=== PATIENT | male | born 1985 | race Caucasian/White ===

== ENCOUNTER 2021-09-20 23:16 | Emergency (ER) | payer OTHER, SELFPAY ==
[2021-09-20 23:20] VITALS: BP 144/67; PULSE 69; RESP 18; TEMP 37.2; O2SAT 97; BMI 27.9
--- NOTE | 2021-09-20 23:27 | DI.RAD.S_ITS ---
PROCEDURE: XR ANKLE LT MIN 3V INDICATIONS: injury TECHNIQUE: 3 views of the ankle were acquired. COMPARISON: None. FINDINGS: Bones: No fractures or dislocations. Ankle mortise is normally aligned. No suspicious bony lesions. Soft tissues: No tibiotalar joint effusion. Achilles tendon appears normal. IMPRESSION: No trauma found. Dictated by: Adelfo Schofield M.D. on 09/21/2021 at 0:08 Approved by: Adelfo Schofield M.D. on 09/21/2021 at 0:09
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
[2021-09-21] MEDS: HYDROCODONE/ACET 5/325 PREPACK 1 BOTTLE MISC (02:03)
[2021-09-21] MEDS: ONDANSETRON 4 MG ODT PREPACK 1 BOTTLE MISC (02:03)
[2021-09-21 02:08] VITALS: BP 132/80; PULSE 60; RESP 18; O2SAT 99
== END 2021-09-21 02:09 | disposition home or self-care (01) ==
PROVIDERS: Emergency Provider Emergency Medicine; PCP Registered Nurse
DX: S92.252A Displaced fracture of navicular [scaphoid] of left foot, initial encounter for closed fracture (principal); V00.131A Fall from skateboard, initial encounter
CPT/HCPCS: 73610; 73700; 99283

== ENCOUNTER → 2021-10-20 12:44 | Outpatient (CLI) | payer OTHER, SELFPAY ==
--- NOTE | 2021-10-20 | DI.US.S_ITS ---
PROCEDURE: US PERIPH VENOUS LOW EXTREM LT INDICATIONS: LEFT LEG PAIN TECHNIQUE: Real-time imaging, as well as color and pulse Doppler interrogation, were performed of the lower extremity deep veins from the inguinal ligament to the popliteal fossa. COMPARISON: None. FINDINGS: The common femoral, femoral and popliteal veins are normally compressible, and free of intraluminal thrombus. Color and pulse Doppler demonstrate normal phasic intraluminal flow. There is normal augmentation response to distal compression maneuver. IMPRESSION: Negative for deep venous thrombosis. Dictated by: Brent Stock M.D. on 10/20/2021 at 12:19 Approved by: Brent Stock M.D. on 10/20/2021 at 12:19
== END ==
PROVIDERS: PCP Registered Nurse; Referring Provider Orthopaedic Surgery Foot and Ankle Surgery; Visit Provider Orthopaedic Surgery Foot and Ankle Surgery
DX: M79.605 Pain in left leg (principal)
CPT/HCPCS: 93971

== ENCOUNTER → 2023-04-23 16:25 | Outpatient (CLI) | payer OTHER, SELFPAY ==
[2023-04-23 17:41] LABS: Add Manual Diff / Slide Review NO; Basophils Absolute Auto 100 /uL (0-100); Basophils Percent Auto 0.8 % (0-2); Eosinophils Absolute Auto 200 /uL (0-450); Eosinophils Percent Auto 2.6 % (2-4); Hematocrit 43.5 % (41-53); Lymphocytes Absolute Auto 2300 /uL (1100-4500); Lymphocytes Percent Auto 36.7 % (25-40); Mean Corpuscular HGB Conc 34.5 % (30-36); Monocytes Absolute Auto 500 /uL (0-900); Monocytes Percent Auto 8.7 % (3-14); Neutrophils Absolute Auto 3100 /uL (1500-7000); Neutrophils Percent Auto 51.2 % (50-75); Platelet Count 291 X10^3/uL (150-400); Red Blood Cell Count 5.18 X10^6/uL (4.5-5.9); Red Cell Distribution Width 12.9 % (11.6-14.8); White Blood Cell Count 6.1 X10^3/uL (4.5-11.0)
[2023-04-23 18:10] LABS: Alanine Aminotransferase 60 IU/L (<50); Albumin 4.7 g/dL (3.5-5.0); Albumin Globulin Ratio 1.7 (1.0-2.8); Alkaline Phosphatase 43 U/L (38-126); Aspartate Aminotransferase 34 IU/L (17-59); BUN Creatinine Ratio 24.6 (6-22); Bilirubin Total 0.8 mg/dL (0.2-1.3); Blood Urea Nitrogen 17 mg/dL (9-20); Calcium 9.1 mg/dL (8.4-10.2); Carbon Dioxide 26 mmol/L (22-32); Chloride 102 mmol/L (98-107); Cholesterol 216 mg/dL (140-199); Estimated Glomerular Filt Rate > 60 mL/min (>60); Globulin 2.8 g/dL (1.7-4.1); Glucose 104 mg/dL (70-100); HDL Cholesterol 50 mg/dL (40-60); HEMOLYSIS < 15 (0-50); LDL Cholesterol Calculated 128 mg/dL (<100); Potassium 3.9 mmol/L (3.4-5.1); Sodium 137 mmol/L (137-145); Total Protein 7.5 g/dL (6.3-8.2); Triglycerides 190 mg/dL (35-150)
[2023-04-23 18:28] LABS: Free T4, Direct Thyroxine 1.05 ng/dL (0.78-2.19)
[2023-04-23 18:42] LABS: Thyroid Stimulating Hormone 1.05 uIU/mL (0.47-4.68)
== END ==
LOC: LAB 16:27
PROVIDERS: PCP Registered Nurse; Referring Provider Family Medicine; Visit Provider Family Medicine
DX: I10 Essential (primary) hypertension (principal)
CPT/HCPCS: 36415; 80053; 80061; 84439; 84443; 85025

== ENCOUNTER → 2024-05-13 08:40 | Outpatient (CLI) | payer SELFPAY ==
[2024-05-13 11:01] LABS: Testosterone 640 ng/dL (132-813)
== END ==
PROVIDERS: PCP Family Medicine; Referring Provider Urology; Visit Provider Urology
DX: R53.83 Other fatigue (principal)
CPT/HCPCS: 36415; 84403

== ENCOUNTER → 2024-07-17 17:51 | Outpatient (CLI) | payer BC, SELFPAY ==
[2024-07-17 18:40] LABS: Influenza A - CEPHEID Flu A NEGATIVE (NEGATIVE); Influenza B - CEPHEID Flu B NEGATIVE (NEGATIVE); Respiratory Syncytial Virus Negative (Negative)
[2024-07-17 18:42] LABS: COVID-19 CEPHEID 4-PLEX PCR Negative (Negative)
== END ==
PROVIDERS: PCP Family Medicine; Referring Provider Physician Assistant; Visit Provider Physician Assistant
DX: R05.1 Acute cough (principal)
CPT/HCPCS: 0241U; 87070

== ENCOUNTER 2024-10-09 10:12 | Emergency (ER) | payer BC, SELFPAY ==
[2024-10-09] VITALS (13 sets, daily range): BP systolic 121–145; BP diastolic 77–97; PULSE 54–67; RESP 12–24; TEMP 36.4; O2SAT 96–98; BMI 30.1
--- NOTE | 2024-10-09 10:35 | DI.RAD.S_ITS ---
PROCEDURE: XR CHEST 1V INDICATIONS: Chest Pain TECHNIQUE: One view of the chest was acquired. COMPARISON: None. FINDINGS: Surgical changes and devices: None. Lungs and pleura: Lungs are clear. No pleural effusions or pneumothorax. Mediastinum: Mediastinal contours appear normal. Heart size is normal. Bones and chest wall: No suspicious bony lesions. Overlying soft tissues appear unremarkable. IMPRESSION: No acute cardiopulmonary pathology. Dictated by: Tito Silvestre M.D. on 10/09/2024 at 10:49 Approved by: Tito Silvestre M.D. on 10/09/2024 at 10:49
--- NOTE | 2024-10-09 10:41 | EKG_ITS ---
[address] [address] Test Date: 2024-10-09 Pat Name: Richard García Department: [facility] Room: Gender: Male Guitar Player: SUDARSHAN : 1985 Requested By: Order Number: [id number] Reading MD: Chalino De Souza Measurements Intervals [place] Rate: 62 P: 57 [place]: 164 QRS: 21 QRSD: 102 T: 51 QT: 434 QTc: 440 Interpretive Statements Normal sinus rhythm Electronically Signed On 10-11-2024 13:45:25 PDT by Chalino De Souza
[2024-10-09 11:14] LABS: Add Manual Diff / Slide Review NO; Hematocrit 44.9 % (41-53); Hemoglobin 15.4 g/dL (13.5-17.5); Lymphocytes Absolute Auto 1300 /uL (1100-4500); Mean Corpuscular HGB Conc 34.3 % (30-36); Mean Corpuscular Hemoglobin 29.5 PG (26-34); Mean Corpuscular Volume 85.9 fL (80-100); Platelet Count 284 X10^3/uL (150-400)
[2024-10-09 11:24] LABS: INR 0.9 (0.9-1.3); Prothrombin Time 10.4 SECONDS (9.4-12.5)
[2024-10-09 11:26] LABS: PTT Partial Thromboplastin Tim 29 SECONDS (25.1-36.5)
[2024-10-09 11:29] LABS: Alanine Aminotransferase 67 IU/L (<50); Albumin 4.4 g/dL (3.5-5.0); Albumin Globulin Ratio 1.5 (1.0-2.8); Alkaline Phosphatase 53 U/L (38-126); Blood Urea Nitrogen 11 mg/dL (9-20); Calcium 8.8 mg/dL (8.4-10.2); Carbon Dioxide 27 mmol/L (22-32); Chloride 108 mmol/L (98-107); Creatine Kinase 155 U/L (55-170); Estimated Glomerular Filt Rate > 60 mL/min (>60); Globulin 2.9 g/dL (1.7-4.1); Glucose 128 mg/dL (70-99); HEMOLYSIS < 15 (0-50); Lipase 53 U/L (23-300); Magnesium 2.2 mg/dL (1.6-2.3); Potassium 4.4 mmol/L (3.4-5.1); Sodium 141 mmol/L (137-145); Total Protein 7.3 g/dL (6.3-8.2)
[2024-10-09 11:41] LABS: NT-proBNP (BNP-Adult 18+) 41 pg/mL (<125); Troponin I < 0.012 ng/mL (0.01-0.034)
[2024-10-09] MEDS: ONDANSETRON 4 MG/2 ML INJ IV (11:42)
[2024-10-09] MEDS: SODIUM CHLORIDE 0.9% 1,000 ML 1000 ML IV (14:43)
[2024-10-09] MEDS: droPERidol 2.5 MG/ML VIAL IV (14:44)
--- NOTE | 2024-10-09 15:51 | PC.NURSE ---
Pt states that his nausea is better but he still feels like he is dizzy and like the room is spinning. Provider notified of pt status.
--- NOTE | 2024-10-09 16:47 | DI.CT.S_ITS ---
PROCEDURE: CT HEAD/BRAIN WO CON INDICATIONS: dizziness TECHNIQUE: Noncontrast 4.5 mm thick angled axial sections acquired from the foramen magnum to the vertex, with coronal and sagittal reformats. For radiation dose reduction, the following was used: automated exposure control, adjustment of mA and/or kV according to patient size. COMPARISON: None. FINDINGS: Image quality: Diagnostic. CSF spaces: Basal cisterns are patent. No extra-axial fluid collections. Ventricles are normal in size and shape. Brain: No midline shift. No intracranial mass effect or hemorrhage. Sadler- white matter interface is normal. Skull and face: Calvarium and visualized facial bones are intact, without suspicious lesions. Sinuses: Visualized sinuses and mastoids are clear. IMPRESSION: No acute intracranial pathology. Dictated by: Nelson Cano M.D. on 10/09/2024 at 17:12 Approved by: Nelson Cano M.D. on 10/09/2024 at 17:15
--- NOTE | 2024-10-09 17:26 | ED.DIZZY ---
HPI - Dizziness General Chief Complaint: Dizziness Stated Complaint: DISORIENTED, DIZZY, VOMITING Time Seen by Provider: 10/09/24 15:49 Source: patient and family Mode of arrival: Wheelchair History of Present Illness HPI Narrative: 39-year-old male with no medical history except anxiety and is on phentermine as well for several months comes in for an acute case of vertigo and dizziness for last 2 days. He has gone to the point where he can barely stand. The patient has never had this experience in the past. He denies any stroke symptoms, no hemiplegia no other neuro focal deficits. Related Data Previous Rx's ?Medication ?Instructions ?Recorded phentermine 37.5 mg tablet 37.5 mg PO DAILY #30 tabs 07/07/24 propranolol 20 mg tablet 20 mg PO BID #90 tabs 09/25/24 meclizine 25 mg tablet 25 mg PO DAILY PRN dizziness #14 10/09/24 tabs promethazine 25 mg tablet 25 mg PO Q6H PRN nausea and 10/09/24 vomiting #14 tabs Allergies Allergy/AdvReac Type Severity Reaction Status Date / Time No Known Drug Allergies Allergy Verified 10/09/24 10:33 Review of Systems Review of Systems ROS Unobtainable: All systems reviewed & are unremarkable except as noted in HPI and below Patient History Medical History Wears glasses ADHD Foot pain (~2021) Macular degeneration Prostatitis (~2023) Liver disease (~2016) Low testosterone (~2022) Hypertension (~2022) Chest pain (~2022) Surgical History Hx of circumcision Anesthesia [place] teeth removed Family History Grandfather History of heart disease Grandmother History of heart disease Grandfather History of heart disease Mother Hyperlipidemia Hypertension Sister Hyperlipidemia Hypertension Social History marital status: number of children: 2 occupational status: employed Smoking Status: Never smoker alcohol intake: current caffeine: Yes Type(s) of exercise: none Smoking Status: Never smoker Exam Initial Vital Signs Initial Vital Signs: Vital Signs Temperature 97.5 F L 10/09/24 10:33 Pulse Rate 54 L 10/09/24 10:33 Respiratory Rate 16 10/09/24 10:33 Blood Pressure 121/91 H 10/09/24 10:33 Pulse Oximetry 98 10/09/24 10:33 Oxygen Delivery Method Room Air 10/09/24 10:33 General: Healthy appearing, in no acute distress. Able to give a complete and coherent history. Well-nourished well-developed HEENT: Moist mucous membranes, normal sclera with reactive pupils, Neck: No JVD, supple Respiratory: Lungs are clear to auscultation, no wheezing no rales no rhonchi. Full and symmetrical air movement Cardiac: Regular rate and rhythm no murmurs no bruits Abdomen: Soft, nontender, no rebound or guarding, no flank pain Skin: Warm and dry, no rashes Neurologic: Grossly neurologically intact with no obvious asymmetries or abnormalities Extremities: No trauma, well perfused Psych: Cooperative, appropriate insight and affect Course Course Course Narrative: Patient continued to be dizzy but nausea improved with some Zofran and Inapsine. Orders Ordered: ED Orders 10/09/24 10:35 XR chest 1V Stat EKG-12 Lead Stat 10/09/24 11:02 Complete Blood Count AUTO DIFF Stat Comprehensive Metabolic Panel Stat Lipase Stat Magnesium Stat NT-proBNP (BNP-Adult 18+) Stat PTT Partial Thromboplastin Feliberto Stat Prothrombin Time INR Stat Troponin & CK Cardiac Panel Stat 10/09/24 16:47 CT head/brain wo con Stat Discontinued Medications Aspirin (Aspirin 81 Mg Chew Tab) 324 mg PO NOW ONE Stop: 10/09/24 10:35 Last Admin: 10/09/24 14:44 Dose: Not Given Documented By: MPO Droperidol (Droperidol 2.5 Mg/Ml Vial) 2.5 mg IV NOW ONE Stop: 10/09/24 14:35 Last Admin: 10/09/24 14:44 Dose: 2.5 mg Documented By: MPO Sodium Chloride (Normal Saline 0.9%) 500 mls @ 1,000 mls/hr IV BOLUS ONE Stop: 10/09/24 15:03 Last Admin: 10/09/24 14:52 Dose: Not Given Documented By: MPO Sodium Chloride (Normal Saline 0.9%) 1,000 mls @ 1,000 mls/hr IV BOLUS ONE Stop: 10/09/24 15:42 Last Infusion: 10/09/24 15:50 Dose: Infused Documented By: Admin: 10/09/24 14:43 Dose: 1,000 mls/hr Documented By: JACOB Meclizine HCl (Meclizine Hcl 12.5 Mg Tablet) 50 mg PO NOW ONE Stop: 10/09/24 17:55 Last Admin: 10/09/24 18:02 Dose: 50 mg Documented By: JACOB Ondansetron HCl (Ondansetron 4 Mg/2 Ml Inj) 4 mg IV NOW ONE Stop: 10/09/24 11:31 Last Admin: 10/09/24 11:42 Dose: 4 mg Documented By: TOMAS Reevaluation(s) Reevaluation #1: Patient is still having some vertigo, Jada maneuver attempted once but was not successful. Patient's nausea has improved. Vital Signs Vital signs: Vital Signs - 8 hr 10/09/24 13:47 10/09/24 13:47 10/09/24 13:49 Pulse Rate 57 L 62 Respiratory Rate 24 Blood Pressure 140/80 140/80 Pulse Oximetry 98 97 Oxygen Delivery Method Room Air 10/09/24 14:00 10/09/24 14:00 10/09/24 14:30 Pulse Rate 54 L 60 Respiratory Rate Blood Pressure 123/77 Pulse Oximetry 97 98 Oxygen Delivery Method 10/09/24 14:30 10/09/24 15:00 10/09/24 15:00 Pulse Rate 66 Respiratory Rate Blood Pressure 145/78 H 138/87 Pulse Oximetry 98 Oxygen Delivery Method 10/09/24 15:30 10/09/24 15:30 10/09/24 16:00 Pulse Rate 67 Respiratory Rate Blood Pressure 133/92 H 139/92 H Pulse Oximetry 97 Oxygen Delivery Method 10/09/24 16:00 10/09/24 16:30 10/09/24 16:30 Pulse Rate 54 L 61 Respiratory Rate 13 12 Blood Pressure 139/97 H Pulse Oximetry 96 98 Oxygen Delivery Method 10/09/24 17:00 10/09/24 17:30 10/09/24 17:54 Pulse Rate 55 L 63 61 Respiratory Rate 14 16 Blood Pressure Pulse Oximetry 96 98 98 Oxygen Delivery Method 10/09/24 17:54 10/09/24 18:00 Pulse Rate 57 L Respiratory Rate 15 Blood Pressure 143/80 H Pulse Oximetry 98 Oxygen Delivery Method MDM - Dizziness Differential Diagnosis Differential diagnosis: Likely adverse reaction to drug, benign paroxysmal positional vertigo, orthostatic hypotension, vertebral basilar insufficiency and cerebrovascular accident Condition is:: Inadequately Controlled Condition is at treatment goal?: No Lab Data 10/09/24 11:02 10/09/24 11:02 Labs: Lab Results 10/09/24 Range/Units 11:02 WBC 5.0 (4.5-11.0) X10^3/uL RBC 5.22 (4.5-5.9) X10^6/uL Hgb 15.4 (13.5-17.5) g/dL Hct 44.9 (41-53) % MCV 85.9 (80-100) fL MCH 29.5 (26-34) PG MCHC 34.3 (30-36) % RDW 13.1 (11.6-14.8) % Plt Count 284 (150-400) X10^3/uL Neut % (Auto) 65.2 (50-75) % Lymph % (Auto) 25.9 (25-40) % [place] % (Auto) 6.6 (3-14) % Eos % (Auto) 1.6 L (2-4) % Baso % (Auto) 0.7 (0-2) % Neut # (Auto) 3200 (9172-9521) /uL Lymph # (Auto) 1300 (9792-3436) /uL [place] # (Auto) 300 (0-900) /uL Eos # (Auto) 100 (0-450) /uL Baso # (Auto) 0 (0-100) /uL PT 10.4 (9.4-12.5) SECONDS INR 0.9 (0.9-1.3) APTT 29 (25.1-36.5) SECONDS Sodium 141 (137-145) mmol/L Potassium 4.4 (3.4-5.1) mmol/L Chloride 108 H (98-107) mmol/L Carbon Dioxide 27 (22-32) mmol/L BUN 11 (9-20) mg/dL Creatinine 0.65 L (0.66-1.25) mg/dL Estimated GFR > 60 (>60) mL/min BUN/Creatinine Ratio 16.9 (6-22) Glucose 128 H (70-99) mg/dL Calcium 8.8 (8.4-10.2) mg/dL Magnesium 2.2 (1.6-2.3) mg/dL Total Bilirubin 0.8 (0.2-1.3) mg/dL AST 43 (17-59) IU/L ALT 67 H (<50) IU/L Alkaline Phosphatase 53 (38-126) U/L Total Creatine Kinase 155 (55-170) U/L Troponin I < 0.012 (0.01-0.034) ng/mL NT-Pro-B Natriuret Pep 41 (<125) pg/mL Total Protein 7.3 (6.3-8.2) g/dL Albumin 4.4 (3.5-5.0) g/dL Globulin 2.9 (1.7-4.1) g/dL Albumin/Globulin Ratio 1.5 (1.0-2.8) Lipase 53 (23-300) U/L ECG Data Interpretation: Normal axis, normal rhythm ventricular rate of 62 beats per minute. Normal AR intervals no STT wave changes. MDM Narrative Medical decision making narrative: 39-year-old male most likely dealing with a benign proximal positional vertigo. Less likely central reason for his vertigo. Patient's vertigo was not completely resolved upon discharge but patient and his partner were ready to be discharged. Labs were reassuring. EKG reassuring. We will just try Jada maneuvers and meclizine and follow up with his PCP. Discharge Plan Departure Patient Disposition: Home Clinical Impression: Benign paroxysmal positional vertigo Qualifiers: Laterality: unspecified laterality Qualified Code(s): H81.10 - Benign paroxysmal vertigo, unspecified ear Instructions: DI for Vertigo, How to Perform Jada Maneuver Prescriptions: New meclizine 25 mg tablet 25 mg PO DAILY PRN (Reason: dizziness) Qty: 14 0RF promethazine 25 mg tablet 25 mg PO Q6H PRN (Reason: nausea and vomiting) Qty: 14 0RF No Action phentermine 37.5 mg tablet 37.5 mg PO DAILY Qty: 30 5RF Rx Instructions: must administer 30 minutes before or 1-2 hours after breakfast propranolol 20 mg tablet 20 mg PO BID Qty: 90 3RF Referrals: Vlad Brewster MD [Primary Care Provider, Family Practice] Stand Alone Forms: Patient Portal/API
--- NOTE | 2024-10-09 17:48 | PC.NURSE ---
Pt states that he remains dizzy. Ambulated to the bathroom with stand by assist. Pt became nauseous and vomited while in bathroom. Pt a&Ox4.
[2024-10-09] MEDS: MECLIZINE HCL 12.5 MG TABLET 50 MG PO (18:02)
== END 2024-10-09 18:12 | disposition home or self-care (01) ==
PROVIDERS: Emergency Provider Family Medicine; PCP Family Medicine
DX: H81.10 Benign paroxysmal vertigo, unspecified ear (principal)
CPT/HCPCS: 36415; 70450; 71045; 80053; 82550; 83690; 83735; 83880; 84484; 85025; 85610; 85730; 93005; 96361; 96374; 96375; 99284; J1790; J2405

== ENCOUNTER 2024-10-13 09:33 | Emergency (ER) | payer BC, SELFPAY ==
[2024-10-13 09:36] VITALS: BP 144/100; PULSE 64; RESP 14; TEMP 36.8; O2SAT 96; BMI 29.2
--- NOTE | 2024-10-13 09:43 | ED.ABDPAIN ---
HPI - Abdominal Pain General Chief Complaint: Abdominal Pain Stated Complaint: Possible hernia lower left side pubic area Time Seen by Provider: 10/13/24 09:41 History of Present Illness HPI narrative: Patient is a 39-year-old male no significant past medical history comes into the ED from home for evaluation of pain to his left pelvic region. He states that this started yesterday, he states that he was here previously for vertigo, he states that he is worried he might have a hernia given all the vomiting. He denies any other symptoms at this time, states he still feels a little nauseous from the vertigo however had significant improvement since his presentation here previously. Patient not complaining of any other symptoms at this time. Related Data Previous Rx's ?Medication ?Instructions ?Recorded phentermine 37.5 mg tablet 37.5 mg PO DAILY #30 tabs 07/07/24 propranolol 20 mg tablet 20 mg PO BID #90 tabs 09/25/24 meclizine 25 mg tablet 25 mg PO DAILY PRN dizziness #14 10/09/24 tabs promethazine 25 mg tablet 25 mg PO Q6H PRN nausea and 10/09/24 vomiting #14 tabs ondansetron 4 mg disintegrating 4 mg PO Q8H PRN nausea and 10/12/24 tablet vomiting #30 tabs Allergies Allergy/AdvReac Type Severity Reaction Status Date / Time No Known Drug Allergies Allergy Verified 10/13/24 09:42 Review of Systems Review of Systems Narrative: General: Denies fever, chills, weight loss HEENT: Denies headache, eye drainage, eye irritation, head trauma, sore throat, voice change Cardiovascular: Denies any chest pain, palpitations, tachycardia Respiratory: Denies any shortness of breath, cough, wheeze, stridor GI/: Positive left pelvic/abdominal pain, nausea, positive vomiting, diarrhea, bright red blood per rectum, melanotic stools, urinary frequency, urinary retention, dysuria, hematuria MSK: Denies any joint pain, muscle pains, swelling Skin: Denies any rashes, lesions, discoloration Neuro: Denies any headache, lightheadedness, dizziness, fainting, weakness Psych: Denies SI/HI Patient History Medical History Wears glasses ADHD Foot pain (~2021) Macular degeneration Prostatitis (~2023) Liver disease (~2016) Low testosterone (~2022) Hypertension (~2022) Chest pain (~2022) Surgical History Hx of circumcision Anesthesia [place] teeth removed Family History Grandfather History of heart disease Grandmother History of heart disease Grandfather History of heart disease Mother Hyperlipidemia Hypertension Sister Hyperlipidemia Hypertension Social History marital status: number of children: 2 occupational status: employed Smoking Status: Unknown if ever smoked alcohol intake: current caffeine: Yes Type(s) of exercise: none Exam Narrative Exam Narrative: General: Cooperative, well-developed, not in acute distress HEENT: Normocephalic, atraumatic, PERRLA, normal sclera, eyelids normal Neck: Active full range of motion, atraumatic Chest: Normal to inspection, negative crepitus, no overlying erythema ecchymosis Respiratory: Normal respiratory effort, not in acute respiratory distress, clear to auscultation bilaterally negative cough, wheeze, tachypnea, rhonchi, rales Cardiology: Regular rate rhythm negative gallop, murmur, rubs GI/: No tenderness to palpation, soft, non rigid, normal to inspection, on exam patient with mild reproducible tenderness to palpation over the pelvic bone on the left no inguinal hernias noted, there is no overlying skin changes MSK: Full active range of motion in all 4 extremities, atraumatic, no tenderness to palpation of any bony prominences Skin: No rashes or lesions noted Neuro: Alert awake oriented x3, moves all 4 extremities spontaneously, cranial nerves intact, able to answer all questions appropriately follows commands appropriately Psych: Cooperative, negative suicidal or homicidal ideations Initial Vital Signs Initial Vital Signs: Vital Signs Temperature 98.3 F 10/13/24 09:36 Pulse Rate 64 10/13/24 09:36 Respiratory Rate 14 10/13/24 09:36 Blood Pressure 144/100 H 10/13/24 09:36 Pulse Oximetry 96 10/13/24 09:36 Oxygen Delivery Method Room Air 10/13/24 09:36 Course Orders Ordered: ED Orders 10/13/24 09:50 CT abdomen pelvis w con Stat 10/13/24 10:00 Complete Blood Count AUTO DIFF Stat Comprehensive Metabolic Panel Stat Lactate (Lactic Acid) Stat Lipase Stat MAG [Magnesium] Stat Discontinued Medications Sodium Chloride (Normal Saline 0.9%) 1,000 mls @ 1,000 mls/hr IV BOLUS ONE Stop: 10/13/24 10:48 Last Admin: 10/13/24 10:10 Dose: 1,000 mls/hr Documented By: CTS Ketorolac Tromethamine (Ketorolac 30 Mg/Ml Vial) 30 mg IV NOW ONE Stop: 10/13/24 09:50 Last Admin: 10/13/24 10:10 Dose: 30 mg Documented By: CTS Metoclopramide HCl (Metoclopramide 10 Mg/2 Ml Inj) 10 mg IV NOW ONE Stop: 10/13/24 09:50 Last Admin: 10/13/24 10:10 Dose: 10 mg Documented By: CTS Vital Signs Vital signs: Vital Signs - 8 hr 10/13/24 09:36 Temperature 98.3 F Pulse Rate 64 Respiratory Rate 14 Blood Pressure 144/100 H Pulse Oximetry 96 Oxygen Delivery Method Room Air MDM - Abdominal Pain Differential Diagnosis Differential diagnosis: Likely other (Electrolyte abnormality, lymphedema, hernia) Lab Data 10/13/24 10:00 10/13/24 10:00 Labs: Lab Results 10/13/24 Range/Units 10:00 WBC 4.3 L (4.5-11.0) X10^3/uL RBC 5.28 (4.5-5.9) X10^6/uL Hgb 15.4 (13.5-17.5) g/dL Hct 44.2 (41-53) % MCV 83.8 (80-100) fL MCH 29.2 (26-34) PG MCHC 34.8 (30-36) % RDW 12.9 (11.6-14.8) % Plt Count 245 (150-400) X10^3/uL Neut % (Auto) 60.9 (50-75) % Lymph % (Auto) 20.6 L (25-40) % [place] % (Auto) 17.5 H (3-14) % Eos % (Auto) 0.2 L (2-4) % Baso % (Auto) 0.8 (0-2) % Neut # (Auto) 2600 (1210-7146) /uL Lymph # (Auto) 900 L (9343-3399) /uL [place] # (Auto) 800 (0-900) /uL Eos # (Auto) 0 (0-450) /uL Baso # (Auto) 0 (0-100) /uL Sodium 137 (137-145) mmol/L Potassium 4.1 (3.4-5.1) mmol/L Chloride 105 (98-107) mmol/L Carbon Dioxide 25 (22-32) mmol/L BUN 12 (9-20) mg/dL Creatinine 0.79 (0.66-1.25) mg/dL Estimated GFR > 60 (>60) mL/min BUN/Creatinine Ratio 15.2 (6-22) Glucose 103 H (70-99) mg/dL Lactate 0.8 (0.7-2.1) mmol/L Calcium 9.5 (8.4-10.2) mg/dL Magnesium 1.8 (1.6-2.3) mg/dL Total Bilirubin 0.9 (0.2-1.3) mg/dL AST 33 (17-59) IU/L ALT 51 H (<50) IU/L Alkaline Phosphatase 55 (38-126) U/L Total Protein 7.3 (6.3-8.2) g/dL Albumin 4.5 (3.5-5.0) g/dL Globulin 2.8 (1.7-4.1) g/dL Albumin/Globulin Ratio 1.6 (1.0-2.8) Lipase 48 (23-300) U/L Point of care testing: Urine Dip Bedside Urine Glucose Negative Bedside Urine Bilirubin - Negative Bedside Urine Ketone - Negative Urine Specific [place] 1.005 Bedside Urine Occult Blood - Negative Bedside Urine pH 6.0 Bedside Urine Protein - Negative Bedside Urine Urobilinogen - Negative Bedside Urine Nitrite - Negative Bedside Urine Leukocytes - Negative Esterase Imaging Data CT scan - abdomen/pelvis: Radiologist's Impression: [address] [address] [address] Scan Report Signed Patient: Richard García MR#: [id number] : 1985 Acct:[id number] Age/Sex: 39 / M Date of Service: 10/13/24 Loc: ED Accession Number: [id number] Procedure: CT abdomen pelvis w con Ordering Provider: Darinel Reece D.O. PROCEDURE: CT ABDOMEN PELVIS W CON INDICATIONS: Patient complaining of pain to the left pelvic region TECHNIQUE: After the administration of intravenous contrast, axial sections acquired from the lung bases to the pubic symphysis. Coronal and sagittal reformats were performed. For radiation dose reduction, the following was used: automated exposure control, adjustment of mA and/or kV according to patient size. COMPARISON: [facility], , US TESTICULAR SCROTUM, 07/05/2023, 17:58. FINDINGS: Image quality: Diagnostic. Lower Chest: No significant findings. ABDOMEN: Liver: No solid mass. Gallbladder: No radiopaque gallstones or wall thickening. Biliary ducts: No biliary dilation. Pancreas: No ductal dilation. Spleen: Size is within normal limits. Adrenal Glands: No adrenal nodules. Kidneys and Ureters: No hydronephrosis. No solid mass. No complex renal cystic lesion which requires follow up. Stomach and Bowel: Normal colonic caliber, without significant wall thickening. Peritoneum: No abnormal intraperitoneal fluid. No free air. Ventral Wall: No significant ventral hernia. Abdominal Nodes: No retroperitoneal or mesenteric adenopathy by size criteria. Vessels: Aorta and inferior vena cava are normal in size. PELVIS: Pelvic Organs: Unremarkable. Bladder: No bladder wall thickening, accounting for underdistention. Pelvic Nodes: No enlarged lymph nodes. Miscellaneous: There is inflammatory stranding of the subcutaneous fat in the anterior left pelvis, anterior to the hip joint, with minimal extension above the inguinal ligament. Findings are mostly in the extra abdominal anterior fat. There is associated shotty inflammatory adenopathy. Etiology uncertain. No obvious muscle tears in the general vicinity. No fluid collections. Bones: No aggressive osseous abnormality. IMPRESSION: There is a nonspecific inflammatory process which is predominantly centered in the subcutaneous fat of the left inguinal region. There is associated likely reactive adenopathy. There is no obvious muscle tear. There is no fluid collection. MDM Narrative Medical decision making narrative: Patient is a 39-year-old male without any significant past medical history presenting from home for evaluation of left pelvic/abdominal swelling pain. States that he thinks he might have a hernia, on exam there is some swelling and reproducible tenderness to palpation over the pelvic bone on the left side but no overlying skin changes, less likely hernia given position, no palpable inguinal hernias on exam. Patient states that they symptoms started yesterday, states he has been having a lot of nausea and vomiting secondary to vertigo, states he is in the process of getting this checked out by ENT but otherwise with significant improvement of the symptoms but still slightly nauseous here at time of evaluation, patient NIH of 0 no focal deficits. Patient had lab work imaging performed here in the emergency department. Urinalysis not consistent acute urinary tract infection, patient without any leukocytosis, Chem panel unremarkable, CT scan did show nonspecific inflammatory process at the area of concern but no abscess no overlying erythema most likely reactive lymphadenopathy, risks benefits was performed with the patient at this time we will hold off on any antibiotics, instructed to perform symptomatic treatment with anti-inflammatories, he was given strict return precautions he verbalized understanding of this and agrees to being discharged home with outpatient follow up Discharge Plan Departure Patient Disposition: Home Clinical Impression: Male pelvic pain Activity Restrictions/Additional Instructions: Please take anti-inflammatories to help with your symptoms, please follow up with the primary care doctor Please read the discharge instructions sheet carefully and bring all papers to all doctor follow-up visits, as it may contain information that your doctor may want to see. Disease processes change and evolve, if your symptoms worsen or if you develop any new symptoms that are concerning to you please return for evaluation. Your evaluation today does not show any evidence of any life-threatening/serious illnesses requiring admission to the hospital or surgery. Please follow-up with your doctor for re-evaluation in approximately 1 day. Seek immediate medical attention for any worrisome symptoms. *If you do not have a primary care provider please contact the [facility] Resource line at [phone]. They will ask some questions about your medical history and help get you set up with a doctor in the community. Prescriptions: No Action phentermine 37.5 mg tablet 37.5 mg PO DAILY Qty: 30 5RF Rx Instructions: must administer 30 minutes before or 1-2 hours after breakfast ondansetron 4 mg tablet,disintegrating 4 mg PO Q8H PRN (Reason: nausea and vomiting) Qty: 30 0RF propranolol 20 mg tablet 20 mg PO BID Qty: 90 3RF meclizine 25 mg tablet 25 mg PO DAILY PRN (Reason: dizziness) Qty: 14 0RF promethazine 25 mg tablet 25 mg PO Q6H PRN (Reason: nausea and vomiting) Qty: 14 0RF Referrals: Vlad Brewster MD [Primary Care Provider, Family Practice] Stand Alone Forms: Patient Portal/API
--- NOTE | 2024-10-13 09:50 | DI.CT.S_ITS ---
PROCEDURE: CT ABDOMEN PELVIS W CON INDICATIONS: Patient complaining of pain to the left pelvic region TECHNIQUE: After the administration of intravenous contrast, axial sections acquired from the lung bases to the pubic symphysis. Coronal and sagittal reformats were performed. For radiation dose reduction, the following was used: automated exposure control, adjustment of mA and/or kV according to patient size. COMPARISON: [facility], , US TESTICULAR SCROTUM, 07/05/2023, 17:58. FINDINGS: Image quality: Diagnostic. Lower Chest: No significant findings. ABDOMEN: Liver: No solid mass. Gallbladder: No radiopaque gallstones or wall thickening. Biliary ducts: No biliary dilation. Pancreas: No ductal dilation. Spleen: Size is within normal limits. Adrenal Glands: No adrenal nodules. Kidneys and Ureters: No hydronephrosis. No solid mass. No complex renal cystic lesion which requires follow up. Stomach and Bowel: Normal colonic caliber, without significant wall thickening. Peritoneum: No abnormal intraperitoneal fluid. No free air. Ventral Wall: No significant ventral hernia. Abdominal Nodes: No retroperitoneal or mesenteric adenopathy by size criteria. Vessels: Aorta and inferior vena cava are normal in size. PELVIS: Pelvic Organs: Unremarkable. Bladder: No bladder wall thickening, accounting for underdistention. Pelvic Nodes: No enlarged lymph nodes. Miscellaneous: There is inflammatory stranding of the subcutaneous fat in the anterior left pelvis, anterior to the hip joint, with minimal extension above the inguinal ligament. Findings are mostly in the extra abdominal anterior fat. There is associated shotty inflammatory adenopathy. Etiology uncertain. No obvious muscle tears in the general vicinity. No fluid collections. Bones: No aggressive osseous abnormality. IMPRESSION: There is a nonspecific inflammatory process which is predominantly centered in the subcutaneous fat of the left inguinal region. There is associated likely reactive adenopathy. There is no obvious muscle tear. There is no fluid collection. Dictated by: Gustavo Howe M.D. on 10/13/2024 at 10:44 Approved by: Gustavo Howe M.D. on 10/13/2024 at 10:57
[2024-10-13] MEDS: SODIUM CHLORIDE 0.9% 1,000 ML 1000 ML IV (10:10)
[2024-10-13] MEDS: KETOROLAC 30 MG/ML VIAL IV (10:10)
[2024-10-13] MEDS: METOCLOPRAMIDE 10 MG/2 ML INJ IV (10:10)
[2024-10-13 10:15] LABS: Add Manual Diff / Slide Review NO; Hematocrit 44.2 % (41-53); Hemoglobin 15.4 g/dL (13.5-17.5); Lymphocytes Absolute Auto 900 /uL (1100-4500); Mean Corpuscular HGB Conc 34.8 % (30-36); Mean Corpuscular Hemoglobin 29.2 PG (26-34); Mean Corpuscular Volume 83.8 fL (80-100); Platelet Count 245 X10^3/uL (150-400)
[2024-10-13 10:26] LABS: Lactate (Lactic Acid) 0.8 mmol/L (0.7-2.1)
[2024-10-13 10:27] LABS: Alanine Aminotransferase 51 IU/L (<50); Albumin 4.5 g/dL (3.5-5.0); Albumin Globulin Ratio 1.6 (1.0-2.8); Alkaline Phosphatase 55 U/L (38-126); Blood Urea Nitrogen 12 mg/dL (9-20); Calcium 9.5 mg/dL (8.4-10.2); Carbon Dioxide 25 mmol/L (22-32); Chloride 105 mmol/L (98-107); Estimated Glomerular Filt Rate > 60 mL/min (>60); Globulin 2.8 g/dL (1.7-4.1); Glucose 103 mg/dL (70-99); HEMOLYSIS < 15 (0-50); Lipase 48 U/L (23-300); Potassium 4.1 mmol/L (3.4-5.1); Sodium 137 mmol/L (137-145); Total Protein 7.3 g/dL (6.3-8.2)
[2024-10-13 10:28] LABS: Magnesium 1.8 mg/dL (1.6-2.3)
[2024-10-13 11:28] VITALS: BP 142/90; PULSE 60; RESP 18; TEMP 36.6; O2SAT 100
== END 2024-10-13 11:27 | disposition home or self-care (01) ==
PROVIDERS: Emergency Provider Student in an Organized Health Care Education/Training Program; PCP Family Medicine
DX: R10.2 Pelvic and perineal pain (principal)
CPT/HCPCS: 36415; 74177; 80053; 81003; 83605; 83690; 83735; 85025; 96361; 96374; 96375; 99284; J1885; J2765; Q9967

== ENCOUNTER → 2024-11-03 17:28 | Outpatient (CLI) | payer BC, SELFPAY ==
--- NOTE | 2024-11-03 17:30 | DI.MRI.S_ITS ---
PROCEDURE: MR BRAIN (IAC) WWO CON INDICATIONS: VERTIGO TECHNIQUE: Noncontrast sagittal T1 spin echo, axial FLAIR, axial gradient echo, axial diffusion and ADC through the brain. Axial thin-slice 3D CISS, coronal TruFISP, axial T1 spin echo with fat saturation through the internal auditory canals. After the administration of contrast, thin slice axial and coronal T1 spin echo with fat saturation through the internal auditory canals, and axial and coronal and sagittal T1 spin echo with fat saturation through the brain. COMPARISON: [facility], CT, CT HEAD/BRAIN WO CON, 10/09/2024, 16:50. FINDINGS: Image quality: Excellent. Cerebellopontine angles: No cerebellopontine angle masses. Inner ear structures appear normally formed. No suspicious enhancement in the internal auditory canal or along the course of the 7th cranial nerve. CSF spaces: Ventricles are normal in size and shape. No extra-axial fluid collections. Basal cisterns are patent. Brain: No intracranial bleeds or mass effects. Sadler-white matter interface is intact. No abnormal intracranial enhancement. Diffusion weighted images demonstrate no acute ischemic insults. Brainstem appears normal. Normal intravascular flow voids are present. Skull and face: Calvarial marrow signal is normal. Orbits appear normal. Sinuses: Sinuses and mastoids are clear. IMPRESSION: 1. Negative evaluation. 2. No recent infarct. Dictated by: Nimo Eubanks M.D. on 11/06/2024 at 11:36 Approved by: Nimo Eubanks M.D. on 11/06/2024 at 11:37
== END ==
LOC: MRI 17:29
PROVIDERS: PCP Family Medicine; Referring Provider Otolaryngology Facial Plastic Surgery; Visit Provider Otolaryngology Facial Plastic Surgery
DX: R42 Dizziness and giddiness (principal); H93.13 Tinnitus, bilateral
CPT/HCPCS: 70553; A9579

== ENCOUNTER → 2024-12-28 10:02 | Outpatient (CLI) | payer BC, SELFPAY ==
[2024-12-28 11:44] LABS: Hemoglobin A1C% w Est Avg Glu 5.2 % (4.0-6.0)
[2024-12-28 12:26] LABS: Alanine Aminotransferase 49 IU/L (<50); Albumin 4.6 g/dL (3.5-5.0); Albumin Globulin Ratio 1.8 (1.0-2.8); Alkaline Phosphatase 52 U/L (38-126); Cholesterol 253 mg/dL (140-199); Globulin 2.5 g/dL (1.7-4.1); HDL Cholesterol 63 mg/dL (40-60); HEMOLYSIS < 15 (0-50); Total Protein 7.1 g/dL (6.3-8.2); Triglycerides 125 mg/dL (35-150)
[2024-12-28 12:34] LABS: Vitamin D 25 Hydroxy (D3) 26.5 ng/mL (30.0-100.0)
[2024-12-28 14:05] LABS: Vitamin B12 452 pg/mL (239-931)
== END ==
PROVIDERS: PCP Family Medicine; Referring Provider Physician Assistant; Visit Provider Physician Assistant
DX: R19.4 Change in bowel habit (principal); E78.2 Mixed hyperlipidemia; R53.83 Other fatigue; R79.89 Other specified abnormal findings of blood chemistry; E55.9 Vitamin D deficiency, unspecified; R74.8 Abnormal levels of other serum enzymes; R73.9 Hyperglycemia, unspecified
CPT/HCPCS: 80061; 80076; 82306; 82607; 82784; 83036; 83516; 84403